=== PATIENT | female | born 1960 | race Caucasian/White ===

== ENCOUNTER 2022-06-21 15:21 | Emergency (ER) | payer SELFPAY ==
[2022-06-21] MEDS ORDERED: Nitroglycerin 0.4 MG Tab.SL SL ONE (15:47)
[2022-06-21] MEDS ORDERED: Aspirin 81 MG Tab.Chew PO ONE (15:52)
[2022-06-21 16:20] LABS: TROPONIN I HIGH SENSITIVITY 7.8 pg/mL (<=60.3)
[2022-06-21] MEDS ORDERED: amLODIPine 5 MG Tab PO ONE (17:21)
== END 2022-06-21 18:00 | disposition home or self-care (01) ==
LOC: JP.ED 15:21
DX: R07.89 Other chest pain (principal); F15.10 Other stimulant abuse, uncomplicated; I10 Essential (primary) hypertension; Z79.899 Other long term (current) drug therapy
CPT/HCPCS: 36415; 71045; 80048; 80305; 81001; 83880; 84484; 85025; 85379; 93005; 99285; A9270; 93010; 99284

== ENCOUNTER 2023-03-07 11:20 | Emergency (ER) | payer SELFPAY ==
[2023-03-07 13:12] LABS: HEMATOCRIT 40.5 % (34.3-46.0); HEMOGLOBIN 13.3 g/dL (11.2-15.5); MEAN CORPUSCULAR HEMOGLOBIN 28.5 pg (31.6-35.5); MEAN CORPUSCULAR HGB CONC 32.8 g/dL (31.6-35.5); MEAN CORPUSCULAR VOLUME 86.7 fL (81.4-99.0); PLATELET COUNT,PLT 278 K/uL (130-375); RED BLOOD CELL COUNT 4.67 M/uL (3.77-5.24); WHITE BLOOD CELL COUNT,WBC 15.3 K/uL (3.2-11.0)
[2023-03-07 13:46] LABS: A/G RATIO 1.1 (1.2-2.2); ALANINE AMINOTRANSFERASE,ALT 31 U/L (12-78); ALBUMIN 3.6 g/dL (3.4-5.0); ALKALINE PHOSPHATASE 101 U/L (46-116); ASPARTATE AMNIOTRANSFERASE,AST 18 U/L (15-37); BILIRUBIN TOTAL 0.5 mg/dL (0.2-1.0); BLOOD UREA NITROGEN,BUN 19 mg/dL (7-18); CALCIUM 9.1 mg/dL (8.5-10.1); CARBON DIOXIDE,CO2 29 mmol/L (21-32); CHLORIDE,CL 102 mmol/L (100-108); CREATININE 0.9 mg/dL (0.6-1.0); EST CRCL DRUG DOSING (CG) 53.61 mL/min; ESTIMATED GFR 72 mL/min (>60); GLUCOSE RANDOM 97 mg/dL (74-106); POTASSIUM,K 3.5 mmol/L (3.6-5.2); PROTEIN TOTAL,TP 6.9 g/dL (6.4-8.2); SODIUM,NA 138 mmol/L (140-148); TROPONIN I HIGH SENSITIVITY 8.1 pg/mL (<=60.3)
[2023-03-07 15:34] LABS: ANION GAP 10.5 mmol/L (5.0-14.0)
[2023-03-07 15:39] LABS: EOSINOPHILS ABSOLUTE MAN 0.31 K/uL (0.00-0.40); EOSINOPHILS PERCENT MAN 2 % (2-4); LYMPHOCYTES ABSOLUTE MAN 7.96 K/uL (0.8-3.3); MONOCYTES ABSOLUTE MAN 0.77 K/uL (0.20-0.90); MONOCYTES PERCENT MAN 5 % (2-6); NEUTROPHILS ABSOLUTE MAN 6.27 K/uL (1.0-7.6); SEG NEUTROPHILS PERCENT MAN 41 % (36-66)
[2023-03-07 15:40] LABS: LYMPHOCYTES PERCENT MAN 52 % (24-44)
== END 2023-03-07 16:24 | disposition home or self-care (01) ==
LOC: JP.ED 11:20
DX: J40 Bronchitis, not specified as acute or chronic (principal); I10 Essential (primary) hypertension; Z88.0 Allergy status to penicillin; Z20.822 Contact with and (suspected) exposure to COVID-19
CPT/HCPCS: 36415; 71046; 71046-26; 80053; 83880; 84484; 85025; 85379; 99285; U0002